=== PATIENT | female | born 1975 | race Caucasian/White ===

== ENCOUNTER 2018-05-09 07:56 | Emergency (ER) | END 2018-05-09 08:58 | disposition home or self-care (01) ==

== ENCOUNTER 2018-10-30 11:23 | Day surgery (SDC) | END 2018-10-30 17:06 | disposition home or self-care (01) ==

== ENCOUNTER 2018-12-04 06:53 | Day surgery (SDC) | payer OTHER ==
[~2018-12-04] VITALS: Ht 162.6 cm; Wt 53.5 kg
[~2018-12-04 06:53] MED LIST: AMOX500C2 PO; FER325 PO; ONDA4TAB95 PO; SIMV20TA PO
[2018-12-04 07:17] VITALS: Ht 162.6 cm; Wt 53.5 kg
[2018-12-04] MEDS ORDERED: NO DAILY MEDS (07:40)
[2018-12-04 08:27] VITALS: BP 139/65; PULSE 63; RESP 18
[2018-12-04] MEDS ORDERED: FENTAnyl 50 MCG/ML VIAL ONE (09:08)
[2018-12-04] MEDS ORDERED: MIDAZOLAM 1 MG/ML 2 ML INJ ONE ×3 (09:08)
[2018-12-04 09:30] VITALS: BP 104/55; PULSE 56; RESP 20
== END 2018-12-04 15:13 | disposition home or self-care (01) ==
LOC: GIL 06:53
PROVIDERS: ATTEND Internal Medicine Gastroenterology
DX: K64.4 Residual hemorrhoidal skin tags (principal); K64.8 Other hemorrhoids
CPT/HCPCS: 45378; 84703; J2250; J3010